=== PATIENT | female | born 1940 | race Caucasian/White ===

== ENCOUNTER 2017-06-27 13:04 | Emergency (ER) | payer OTHER, BC ==
[~2017-06-27] VITALS: Ht 167.6 cm; Wt 52.2 kg
--- NOTE | ~2017-06-27 | EKG ---
[place] [address] [facility] [place] [address] ELECTROCARDIOGRAM REPORT Name: YASIR TAVERAS [id number] Admission: 06/27/17 Attend Phys: Discharge: 06/27/17 Date of : 36 Report #: [id number] THIS REPORT FOR: //name// [facility] ED Test Date: 2017-06-27 Test Time: 13:01:45 Pat Name: YASIR TAVERAS Department: Room: Gender: F Automobile Locator: IRAJ : 1940 Requested By: Katt Bender Order Number: [id number] MD: Ron Martinez Measurements Intervals [place] Rate: 145 P: [place]: QRS: -19 QRSD: 90 T: 103 QT: 257 QTc: 399 Interpretive Statements Atrial fibrillation with rapid V-rate Ventricular premature complex Borderline left axis deviation Anterior infarct, old Repolarization abnormality, prob rate related No previous ECG available for comparison Electronically Signed On 06-27-2017 17:08:59 CDT by Ron Martinez [email or web address] <ELECTRONICALLY SIGNED> By: Ron Martinez MD, [facility] 06/27/17 1708 1301 1301 Ron Martinez MD, FACC /EPI
[2017-06-27 13:32] LABS: ABSOLUTE NEUTROPHILS 3.2 thou/uL (1.4-8.2); BASOPHILS 0.8 % (0.0-2.0); EOSINOPHILS 1.2 % (0.0-3.0); HEMATOCRIT 43.9 % (37.0-47.0); HEMOGLOBIN 15.1 gm/dL (12.0-15.0); LYMPHOCYTES 21.4 % (24.0-44.0); MCH 32.2 pg (26.0-34.0); MCHC 34.4 g/dL (28.0-37.0); MCV 93.8 fL (80.0-100.0); MONOCYTES 8.9 % (1.0-8.0); PLATELET COUNT 209 thou/uL (150-400); POLYS 67.7 % (36.0-66.0); RBC 4.68 mil/uL (4.20-5.00); RDW 12.9 % (10.5-14.5); WBC 4.8 thou/uL (4.0-11.0)
[2017-06-27 13:36] LABS: ANION GAP 8 mmol/L (7-16); BUN 15 mg/dL (7-18); CALCIUM 9.5 mg/dL (8.5-10.1); CHLORIDE 101 mmol/L (98-107); CO2 28 mmol/L (21-32); CREATININE 0.7 mg/dL (0.6-1.0); GLUCOSE 97 mg/dL (74-106); POTASSIUM 3.9 mmol/L (3.5-5.1); SODIUM 137 mmol/L (136-145)
[2017-06-27 13:45] LABS: SGOT 39 U/L (15-37); SGPT 37 U/L (30-65); TOTAL BILIRUBIN 0.5 mg/dL (<0.1-1.0); TOTAL PROTEIN 7.8 g/dL (6.4-8.2); TROPONIN-I < 0.04 ng/mL (<0.06)
[2017-06-27 15:38] LABS: URINE BILIRUBIN NEGATIVE (Negative); URINE BLOOD NEGATIVE (Negative); URINE CLARITY CLEAR; URINE COLOR YELLOW; URINE GLUCOSE-RANDOM* NEGATIVE (Negative); URINE KETONES NEGATIVE (Negative); URINE LEUKOCYTES NEGATIVE (Negative); URINE NITRITE NEGATIVE (Negative); URINE PROTEIN (DIPSTICK) NEGATIVE (Negative); URINE UROBILINOGEN 0.2 E.U./dl (0.2-1.0)
== END 2017-06-27 16:21 | disposition home or self-care (01) ==
LOC: ER 13:04
PROVIDERS: Nurse Practitioner Family
DX: I48.91 Unspecified atrial fibrillation (principal); I10 Essential (primary) hypertension; E78.00 Pure hypercholesterolemia, unspecified; E03.9 Hypothyroidism, unspecified

== ENCOUNTER → 2017-06-27 | Day surgery (SDC) | payer OTHER, BC ==
[~2017-06-27] VITALS: Ht 167.6 cm; Wt 49.9 kg
[~2017-06-27] MED LIST: COQ-10100 MG PO; DILTIAZEM 24HR120 M2 PO; DILTIAZEM ER120 MG PO; ELIQUIS5 MG PO; KRILL OIL 1,001 EAC1 PO; LEVOXYL88 MCG PO; LISINOPRIL20 MG PO; PRAVACHOL80 MG PO; VITAMIN B-121000 MC3 PO; VITAMIN C1000 MG PO; VITAMIN D31000 UNIT PO; [UNRECOGNIZED DRUG - OTHER] PO
--- NOTE | ~2017-06-27 | EKG ---
[address] [address] ELECTROCARDIOGRAM REPORT Name: YASIR TAVERAS Room #: 150-3 [facility].#: [id number] Admission: 06/27/17 Attend Phys: Magan Vera MD Discharge: Date of : 36 Report #: [id number] THIS REPORT FOR: //name// [facility] Test Date: 2017-06-27 Test Time: 12:40:48 Pat Name: YASIR TAVERAS Department: Room: 150 3 Gender: F Radio Engineering Teacher: LISANDRO AU : 1940 Requested By: Nona Escobedo Order Number: [id number] MD: Measurements Intervals [place] Rate: 172 P: [place]: QRS: -8 QRSD: 85 T: 176 QT: 245 QTc: 415 Interpretive Statements Atrial fibrillation with rapid V-rate Anteroseptal infarct, old Repolarization abnormality, prob rate related No previous ECG available for comparison [email or web address] By: 1240 1240 Epiphany EpiphanyMD /EPI
[2017-06-27 14:19] VITALS: BP 157/97
== END | disposition home or self-care (01) ==
LOC: OR 05:57 → TBA 06:04 → OR 06:04
DX: S93.112A Dislocation of interphalangeal joint of left great toe, initial encounter (principal); Z53.9 Procedure and treatment not carried out, unspecified reason; I10 Essential (primary) hypertension; E78.00 Pure hypercholesterolemia, unspecified; I48.91 Unspecified atrial fibrillation; Z79.01 Long term (current) use of anticoagulants; E03.9 Hypothyroidism, unspecified; Z87.891 Personal history of nicotine dependence; Z79.899 Other long term (current) drug therapy; Z98.890 Other specified postprocedural states; Z85.3 Personal history of malignant neoplasm of breast; Z98.41 Cataract extraction status, right eye; Z98.42 Cataract extraction status, left eye; X58.XXXA Exposure to other specified factors, initial encounter; Y93.89 Activity, other specified; Y92.89 Other specified places as the place of occurrence of the external cause; Y99.8 Other external cause status
CPT/HCPCS: 50010

== ENCOUNTER 2017-09-12 05:31 | Day surgery (SDC) | payer OTHER, BC ==
[~2017-09-12] VITALS: Ht 167.6 cm; Wt 50.3 kg
--- NOTE | ~2017-09-12 | O ---
[facility] [place] [address] OPERATIVE REPORT Name: YASIR TAVERAS Room #: DEP [facility]..#: [id number] Admission: 09/12/17 Attend Phys: Magan Vera MD Discharge: 09/12/17 Date of : 36 Report #: [id number] THIS REPORT FOR: //name// CC: NOEMY Vera DATE OF SERVICE: 09/12/2017 PREOPERATIVE DIAGNOSES: 1. Left hallux first metatarsophalangeal joint arthritis. 2. Left second toe hammertoe deformity. POSTOPERATIVE DIAGNOSES: 1. Left hallux first metatarsophalangeal joint arthritis. 2. Left second toe hammertoe deformity. PROCEDURE: 1. Left foot first MTP joint arthrodesis. 2. Left second toe proximal interphalangeal joint arthrodesis. 3. Left foot second MTP joint dorsal capsulotomy and tenotomy and third toe flexor tenotomy. SURGEON: Magan Vera M.D. BAG MACHINE OPERATOR HELPER: Wandy Tarango. ANESTHESIA: General. ESTIMATED BLOOD LOSS: Minimal. DRAINS: None. TOURNIQUET TIME: One hour. DESCRIPTION OF PROCEDURE: The patient was brought to the operating room where she was placed under general anesthesia. Once under adequate general anesthesia, her left lower extremity was prepped and draped in sterile manner. The extremity was elevated, exsanguinated, tourniquet placed to 300 mmHg. Dorsal incision at the first MTP joint was then made to dissect down to the joint capsule, which was incised in line with the incision. Exposure of the metatarsophalangeal joint was then achieved utilizing a rongeur to remove any osteophytes. The joint surfaces were then prepared with a rongeur to good bleeding subchondral bone and subsequent to this, a first MTP joint arthrodesis plate from the [place] set was subsequently placed, drilling for the proximally first and then placing the lag screw across the joint with the final fixation with multiple locking screws surrounding this. Fluoroscopy was used to [facility] [address] [place] [address] OPERATIVE REPORT Name: NITINYASIR Room #: [facility]P [facility] M.R.#: [id number] Admission: 09/12/17 Attend Phys: Magan Vera MD Discharge: 09/12/17 Date of : 36 Report #: [id number] verify the position of the plate and screws to be satisfactory. A dorsal incision at the second toe proximal interphalangeal joint was then made, dissected down through the soft tissue directly sharply to the proximal interphalangeal joint. A sagittal saw was then utilized to resect the proximal phalangeal head. The base of the middle phalanx was then exposed and subsequently denuded of any cartilage. The drill for the Smart Toe implant was then placed and subsequent fixation across the joint achieved with a size 22 Smart Toe implant after broaching both proximally and distally. Through the dorsal incision, subsequent dissection was carried over to the second metatarsophalangeal joint where a tenotomy was then performed with capsulotomy and tenotomy with tenotomy scissors of the extensor tendons as well as the dorsal capsule. There did appear to be some underlap of the third toe. Therefore, a plantar flexor tenotomy at the third toe was then achieved as well with a single [place] blade. The wounds were then irrigated copiously and closed with 4-0 Vicryl in the deep fascia and 2-0 Vicryl in subcutaneous tissues, 3-0 nylon was used for the skin. The wound was dressed with Xeroform, 4 x 4s, and sterile soft compressive dressing was placed. Tourniquet was let down at approximately 1 hour. Toes were pink and warm with good capillary refill. There were no complications from the procedure. The patient tolerated the procedure well and went to the recovery room without incident. <ELECTRONICALLY SIGNED> By: Magan Vera MD 10/05/17 1204 1323 1346 Magan Vera MD /nt
[~2017-09-12 05:31] MED LIST changes: +NORVASC5 MG PO; +SORINE 80 MG TA80 M1 PO
[2017-09-12 11:01] VITALS: BP 153/75
[2017-09-12] MEDS ORDERED: PERCOCET 7.5-31 EACH PO (13:15)
[2017-09-12 14:07] VITALS: BP 153/75
== END 2017-09-12 14:50 | disposition home or self-care (01) ==
LOC: OR 05:31 → TBA 05:31 → OR 13:15
DX: M19.072 Primary osteoarthritis, left ankle and foot (principal); M20.42 Other hammer toe(s) (acquired), left foot; I10 Essential (primary) hypertension; E78.00 Pure hypercholesterolemia, unspecified; E03.9 Hypothyroidism, unspecified; I48.91 Unspecified atrial fibrillation; Z85.3 Personal history of malignant neoplasm of breast; Z79.01 Long term (current) use of anticoagulants; Z79.899 Other long term (current) drug therapy; Z98.890 Other specified postprocedural states; Z98.41 Cataract extraction status, right eye; Z98.42 Cataract extraction status, left eye; Z87.891 Personal history of nicotine dependence
CPT/HCPCS: 50010; 50101; 50386; 50951; 51412; 56524; 56526; 56527; 57091; 57165; 62110; 62900; 70005

== ENCOUNTER 2018-06-08 05:30 | Day surgery (SDC) | payer OTHER, BC ==
[~2018-06-08] VITALS: Ht 167.6 cm; Wt 52.2 kg
[~2018-06-08 05:30] MED LIST changes: +ATIVAN0.5 MG PO; +PERCOCET 7.5-31 EACH PO
[2018-06-08 09:25] VITALS: BP 150/57
[2018-06-08] MEDS ORDERED: PERCOCET 7.5-31 EACH PO (11:56)
[2018-06-08 12:41] VITALS: BP 150/57
--- NOTE | 2018-06-11 12:11 | O ---
[facility] [place] [address] OPERATIVE REPORT Name: YASIR TAVERAS Room #: [facility] M..#: [id number] Admission: 06/08/18 ������������������ Attend Phys: Magan Vera MD Discharge: 06/08/18 ������������������ Date of : 36 Report #: [id number] THIS REPORT FOR: //name// CC: Jayce Vera DATE OF SERVICE: 06/08/2018 PREOPERATIVE DIAGNOSES: 1. Right foot first metatarsophalangeal joint arthritis. 2. 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 3. Right foot third hammertoe deformity. POSTOPERATIVE DIAGNOSES: 1. Right foot first metatarsophalangeal joint arthritis. 2. 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 3. Right foot third hammertoe deformity. PROCEDURES: 1. Right foot first MTP joint arthrodesis. 2. Right foot second toe flexor tenotomy. 3. Right foot fourth toe flexor tenotomy. 4. Right foot third toe proximal interphalangeal joint arthrodesis with dorsal capsulotomy and tenotomy. SURGEON: Magan Vera MD PAPETERIE TABLE ASSEMBLER: Wandy Tarango. ANESTHESIA: General. ESTIMATED BLOOD LOSS: Minimal. DRAINS: No drains. TOURNIQUET TIME: One hour. DESCRIPTION OF PROCEDURE: The patient brought to the operating room, where she was placed under general anesthesia. Once under adequate general anesthesia, her right lower extremity was prepped and draped in sterile manner. The extremity was elevated, exsanguinated, tourniquet placed to 300 mmHg. A dorsal incision of the first metatarsophalangeal joint was made. This was dissected down through soft tissue to the joint capsule, which was incised, exposing the first MTP joint. The joint was then denuded of any cartilage, utilizing a rongeur. The guide for the first MTP joint fusion plate from [place] was then placed and subsequently the dorsal compression hole was drilled for. The right [facility] [address] [place] [address] OPERATIVE REPORT Name: YASIR TAVERAS Room #: [facility] M.R.#: [id number] Admission: 06/08/18 ������������������ Attend Phys: Magan Vera MD Discharge: 06/08/18 ������������������ Date of : 36 Report #: [id number] first MTP joint fusion plate was then placed dorsally and fixation then achieved with 2 proximal screws in the plate. The compression screw then placed across the joint and 2 distal screws for fixation. Excellent fixation and alignment was achieved in this manner. We then proceeded to the second and fourth toes where a cach[place] dehe blade was used in the plantar skin on the toes to perform a flexor tenotomy, thus repairing the flexor contracture in each of these toes. A dorsal incision lengthwise over the proximal interphalangeal joint of the third toe was then made and dissection taken down to the joint. The head of the proximal phalanx was then exposed completely with a [employer] blade and a sagittal saw used to transect this and then resect the head of the proximal phalanx. The base of the middle phalanx was denuded of cartilage with a rongeur and the drill for the Smart Toe implant was then utilized. The Smart Toe implant was then placed. This was a size 16 implant. Utilizing a cachil dehe blade, a dorsal capsulotomy and tenotomy was performed as well through a separate dorsal incision at the metatarsophalangeal joint. Once complete, the toes were well aligned. The wounds were irrigated copiously and closed with 2-0 Vicryl in subcutaneous tissues and 3-0 nylon for the skin. Wounds were dressed with Xeroform, 4 x 4s, and sterile soft compressive dressing was placed. Tourniquet was let down at approximately one hour. Toes were pink and warm with good capillary refill. There were no complications from the procedure. The patient tolerated procedure well and went to recovery room without incident. ��������������������������������������������� <ELECTRONICALLY SIGNED> ���������������������������������������� By: Magan Vera MD ��������������������������������������������� 06/11/18 1211 1218 1238 Magan Vera MD /nt
== END 2018-06-08 13:15 | disposition home or self-care (01) ==
LOC: TBA 05:30 → OR 05:30
DX: M19.071 Primary osteoarthritis, right ankle and foot (principal); M20.5X1 Other deformities of toe(s) (acquired), right foot; M20.41 Other hammer toe(s) (acquired), right foot; M77.41 Metatarsalgia, right foot; I10 Essential (primary) hypertension; E78.5 Hyperlipidemia, unspecified; E03.9 Hypothyroidism, unspecified; I48.91 Unspecified atrial fibrillation; F41.9 Anxiety disorder, unspecified; Z98.41 Cataract extraction status, right eye; Z85.3 Personal history of malignant neoplasm of breast; Z87.891 Personal history of nicotine dependence; Z98.42 Cataract extraction status, left eye; Z98.890 Other specified postprocedural states; Z79.899 Other long term (current) drug therapy
CPT/HCPCS: 50010; 50101; 50386; 50951; 56524; 56527; 57091; 57165; 57179; 62110; 62900; 70005